=== PATIENT | male | born 1980 | race Caucasian/White ===

== ENCOUNTER 2018-11-01 07:16 | Emergency (ER) | payer OTHER ==
[~2018-11-01] VITALS: Ht 175.3 cm; Wt 83.9 kg
[2018-11-01] MEDS ORDERED: IBUPROFEN800 MG PO (12:12)
== END 2018-11-01 14:17 | disposition home or self-care (01) ==
LOC: ER 07:16
DX: N50.811 Right testicular pain (principal)